=== PATIENT | female | born 1960 | race Caucasian/White ===

== ENCOUNTER 2023-04-30 18:16 | Emergency (ER) | payer MEDICARE, SELFPAY ==
[2023-04-30 18:39] VITALS: BP 135/87; PULSE 94; RESP 17; TEMP 36.5; O2SAT 96; BMI 30.9
--- NOTE | 2023-04-30 18:52 | XRR_ITS ---
PROCEDURE INFORMATION: Exam: XR Left Ankle Exam date and time: 04/30/2023 6:58 PM Age: 63 years old Clinical indication: Injury or trauma; Patient HX: Lt ankle pain/swelling post fall TECHNIQUE: Imaging protocol: Radiologic exam of the left ankle. Views: 3 or more views. COMPARISON: No relevant prior studies available. FINDINGS: Bones/joints: There is a minimally displaced fracture of the distal fibular diaphysis. Nondisplaced fracture seen in the medial malleolus. There is a nondisplaced fracture of the posterior malleolus. Ankle joint effusion. No dislocation. Soft tissues: There is soft tissue swelling about the ankle greatest laterally. XR/XR ankle LT min 3V* [id number] IMPRESSION: Trimalleolar fracture of the left ankle with overlying soft tissue swelling, as described.
--- NOTE | 2023-04-30 20:42 | W.ED.EXTPRO ---
HPI - Extremity Problem General: Chief complaint: Extremity Injury, Lower Stated complaint: Left ankle injuy Time Seen by Provider: 04/30/23 20:09 History of Present Illness: Patient is a 63-year-old female who presents to the emergency department for evaluation of a left ankle injury. Patient reports that earlier this evening she was going down the stairs when she accidentally missed a step and rolled her left ankle. Patient states that since the incident she has had increased left ankle pain and swelling. Patient states that she is having difficulty bearing weight on her left ankle secondary to the pain. Patient denies any pain at rest, however, the pain can reach a 10 out of 10 in severity with ambulation. She denies any numbness or tingling in the ipsilateral extremity. Admits to full range of motion of the left ankle, foot, and toes. Denies hitting her head or any other part of her body during the fall. Denies loss conscious, nausea, vomiting, visual disturbances, headache, lightheadedness, dizziness, or use of anticoagulation medication. No other complaints at this Associated symptoms: Deny chest pain, fever(s) or rash Review of Systems General: Reports: 10 or more systems reviewed and unremarkable except in HPI and below Const: Denies: fever(s) or chills Eyes: Denies: change in vision or blurry vision ENMT: Denies: throat pain, ear or mastoid pain, ear discharge, nasal discharge or nasal congestion Card: Denies: chest pain or palpitations Resp: Denies: dyspnea, productive cough, non-productive cough or wheezing GI: Denies: abdominal pain, nausea or vomiting Musc: Reports: joint pain and joint swelling Skin/Breast: Denies: rash Neuro: Denies: headache(s), numbness in extremities, dizziness or vertigo Physical Exam Const: COMMON NORMALS: no acute distress, patient oriented x3 and alert HENMT: COMMON NORMALS: normocephalic, atraumatic, TM's normal bilaterally, moist oral mucous membranes and oropharynx normal HEAD & SCALP: normocephalic and atraumatic TYMPANIC MEMBRANE: TM's normal bilaterally OTHER: No Hyman sign or raccoon sign noted. No other evidence of head trauma appreciated anywhere on examination. Bilateral tympanic membranes pearly jones without evidence of effusion or hemotympanums. Eye: COMMON NORMALS: Equal, round and reactive pupils present, EOMs intact bilaterally and conjunctivae normal CONJUNCTIVA: Yes conjunctivae normal PUPIL: Yes Equal, round and reactive pupils present Neck/C-Spine: COMMON NORMALS: full ROM and supple OTHER: No midline vertebral tenderness is noted to cervical spine. Chest: COMMONS NORMALS: normal inspection of the chest Resp: COMMON NORMALS: normal respiratory effort, No retractions and No use of accessory muscles Cardio: COMMON NORMALS: regular rate RATE: regular rate OTHER: 2+ dorsalis pedis pulse left foot. Back/Pelvis: COMMON NORMALS: thoracic and lumbar spine normal to inspection and no thoracic nor lumbar tenderness Extremity: OTHER: Mild swelling is noted to the left ankle. Tenderness to palpation to the lateral malleolus of the left ankle. Patient has full passive and active range of motion in the left ankle, foot, and toes. Moving all other bilateral upper and lower extremities without weakness or deficit. No bony abnormalities or protuberances noted. Neuro: COMMON NORMALS: patient oriented x3 SENSORIUM/ORIENTATION: Yes alert OTHER: Sensation intact to the entirety of the left lower extremity. Patient is alert and oriented x 4. No focal neurological deficits noted on examination. Course Vital Signs: Vital signs: Vital Signs Temperature 97.7 F 04/30/23 18:39 Pulse Rate 94 04/30/23 18:39 Respiratory Rate 17 04/30/23 18:39 Blood Pressure 135/87 04/30/23 18:39 Pulse Oximetry 96 04/30/23 18:39 Oxygen Delivery Me thod Room Air 04/30/23 18:39 MDM - Extremity (Nontraumatic) Medical Decision Making Patient is a 63-year-old female who presents to the emergency department for evaluation of a left ankle injury. On physical examination patient is nontoxic and in no acute distress. Vital signs remained stable throughout the ED course. Patient is neurovascular intact. Compartments are soft and there is no evidence of compartment syndrome. X-ray of the left ankle showed a trimalleolar fracture. I consulted Dr. Boggs with podiatry who recommended posterior short leg with side stirrups, nonweightbearing, and outpatient follow-up in his office. He did not believe the patient required admission or further evaluation at this time. Patient was splinted as instructed. Patient was neurovascular intact both before and after splint placement. A splint was provided in the emergency department. Remain in this and nonweightbearing until evaluated by the orthopedic surgeon. A referral was placed to Dr. Boggs's office, the lan specialist retail loss prevention officer. Number provided in discharge paperwork. Call tomorrow to schedule appointment for further management/evaluation. Ice can be placed over the splint 15 to 20 minutes 5-6 times a day. Tylenol and ibuprofen as needed for pain. Call your primary care provider tomorrow with an update of your symptoms. Return to the emergency department for any rapid or worsening symptoms to include but not limited to numbness, tingling, color changes in the toes of your left foot, difficulties with the splint, or as needed. Patient stated understanding of all discharge instructions was agreeable to the plan of care. Differential diagnosis includes but is not limited to fracture, contusion, sprain, dislocation, compartment syndrome Lab Data Radiology Impressions Ankle X-Ray 04/30/23 18:52 IMPRESSION: Trimalleolar fracture of the left ankle with overlying soft tissue swelling, as described. All radiology interpretation(s) finalized by discharge Discharge Plan Discharge Patient Disposition: Home Clinical Impression: Ankle fracture, left Condition: Stable Discharge Orders: Discharge ED (Routine); Ordered 04/30/23 Ordered By: Javier Asencio Referrals: Eric Boggs DPM [Physician] - Homer Sebastian DO [Primary Care Provider] - Patient Instructions: Ankle Fracture (DC) Activity Restrictions/Additional Instructions: As discussed in room a fracture was noted to your left ankle. A splint was provided in the emergency department. Remain in this and nonweightbearing until evaluated by the orthopedic surgeon. A referral was placed to Dr. Boggs's office, the lan specialist retail loss prevention officer. Number provided in discharge paperwork. Call tomorrow to schedule appointment for further management/evaluation. Ice can be placed over the splint 15 to 20 minutes 5-6 times a day. Tylenol and ibuprofen as needed for pain. Call your primary care provider tomorrow with an update of your symptoms. Return to the emergency department for any rapid or worsening symptoms to include but not limited to numbness, tingling, color changes in the toes of your left foot, difficulties with the splint, or as needed. Coding Level of Care Code ED Investment Banking Manager for Domenico Ugarte
--- NOTE | 2023-04-30 21:21 | PC.NURSE ---
pt skin was pink and normal for pt with 3 plus pulse on left foot. Placed a posterior short splint with a stirup splint. pt states 'No numbness or tingling' after splint was placed
--- NOTE | 2023-05-03 08:33 | DCPLANNER ---
Referral was sent to podiatry on 05/03/23 at 0835. Clinic to contact patient.
== END 2023-04-30 21:35 | disposition home or self-care (01) ==
PROVIDERS: Emergency Provider Physician Assistant; PCP Family Medicine
DX: S82.852A Displaced trimalleolar fracture of left lower leg, initial encounter for closed fracture (principal); X50.1XXA Overexertion from prolonged static or awkward postures, initial encounter
CPT/HCPCS: 29515; 73610; 99283

== ENCOUNTER → 2023-05-03 09:51 | Outpatient (BNVA) | payer MEDICARE, SELFPAY | PROVIDERS: PCP Family Medicine; Visit Provider Podiatrist Foot & Ankle Surgery | DX: S82.852A Displaced trimalleolar fracture of left lower leg, initial encounter for closed fracture (principal); W10.8XXA Fall (on) (from) other stairs and steps, initial encounter | CPT/HCPCS: 99204 ==

== ENCOUNTER 2023-05-06 12:31 | Day surgery (SDC) | payer MEDICARE, SELFPAY ==
[2023-05-06] VITALS (10 sets, daily range): BP systolic 121–145; BP diastolic 63–102; PULSE 62–85; RESP 16–18; TEMP 36.1–36.6; O2SAT 93–100; BMI 30.9
--- NOTE | 2023-05-06 | XR_ITS ---
WS: [id number] Left ankle, C-arm fluoroscopy views, 05/06/2023 Clinical Data: MICKIE PICS Comparison: Left ankle, 04/30/2023 Findings: Dr. Boggs inserted an orthopedic screw into the medial malleolus of the left ankle Impression: Insertion of orthopedic screw in the medial malleolus of the left ankle.
[2023-05-06] MEDS: sodium chloride 0.9% 1,000 ML 30 ML IV (13:10)
[2023-05-06] MEDS: gabapentin 300 mg Capsule PO (13:18)
[2023-05-06] MEDS: CELEcoxib 200 mg Capsule 400 MG PO (13:18)
--- NOTE | 2023-05-06 15:27 | ANES.PREANE2 ---
Pre-Anesthetic Assessment Height/Weight: Height 1.57 m Weight 76.657 kg Temp Pulse Resp BP Pulse Ox O2 Del Method 98 F 85 16 141/102 97 Room Air 05/06/23 13:02 05/06/23 13:02 05/06/23 13:02 05/06/23 13:02 05/06/23 13:02 05/06/23 13:02 Preop Diagnosis: Left trimalleolar fracture Operation Date: 05/06/23 14:10 Proposed Procedures p Open reduction internal fixation left trimalleolar fracture 45477, S82.852A(Left) - Eric Boggs DPM Familial anesthetic complications: none Was Beta Duc taken within 24 hours: N/A Was Clonidine taken within 24 hours: N/A Last intake: Intake Last Liquid Date 05/06/23 Last Liquid Time 07:00 Last Solid Date 05/05/23 Last Solid Time 17:00 Social No alcohol and No tobacco Exam alert, oriented x 3, clear to auscultation bilaterally and regular rate & rhythm Airway Submandibular: within normal limits Cervical ROM: within normal limits Mallampati: Class II Dentition: full Metabolic Hyperlipidemia and Thyroid Disease Neuropsych Depression Anesthetic Plan ASA status: 2 Anesthesia: General and Regional (specify below) (left pop blk) Medications/Allergies Home Medications Medication Instructions Recorded Confirmed Last Taken Type buspirone 5 mg tablet 5 mg PO DAILY 05/03/23 05/05/23 05/05/23 History escitalopram oxalate 20 mg tablet 20 mg PO DAILY 05/03/23 05/05/23 05/05/23 History levothyroxine 88 mcg tablet 88 mcg PO DAILY 05/03/23 05/06/23 05/06/23 History simvastatin 10 mg tablet 10 mg PO DAILY 05/03/23 05/05/23 05/05/23 History valacyclovir 1 gram tablet 1 mg PO DAILY 05/03/23 05/06/23 05/05/23 History Allergies Allergy/AdvReac Type Severity Reaction Status Date / Time No Known Allergies Allergy Verified 05/06/23 13:00 Current Medications Generic Name Dose Route Start Last Admin Trade Name Freq PRN Reason Stop Dose Admin Sodium Chloride 1,000 mls @ 30 mls/hr 05/06/23 12:45 05/06/23 13:10 Sodium Chloride 0.9% IV 05/07/23 12:44 30 mls/hr .Q24H LINDA Administration Data Anesthesia Cardiac Studies: No Data to Display
--- NOTE | 2023-05-06 15:39 | P.HPUD_ITS ---
Surgery/Procedure H&P Update DATE OF PROCEDURE: May 06, 2023 DATE H&P PERFORMED: 05/03/23 H&P UPDATE INFORMATION: I have reviewed H&P completed within last 30 days, I have examined patient prior to procedure, No changes to prior documentation and H&P is in [facility] EMR on date indicated PREOP DIAGNOSIS: Left trimalleolar fracture PLANNED PROCEDURE: Operation Date: 05/06/23 14:10 Proposed Procedures p Open reduction internal fixation left trimalleolar fracture 12678, S82.852A(Left) - Eric Boggs DPM
[2023-05-06] MEDS: ceFAZolin 2,000 MG in sodium chloride 0.9% (plus) 50 ML 100 MG IV (15:59)
--- NOTE | 2023-05-06 16:08 | P.OP_ITS ---
Operative Report Date of procedure: May 06, 2023 Pre-op diagnosis: Left trimalleolar fracture Post-op diagnosis: Left trimalleolar fracture Post-op findings: Congruent ankle mortise with excellent reduction and fixation of trimalleolar fracture. Procedure done: Open reduction internal fixation left trimalleolar fracture. CPT code 24641 Implants: [place] anatomic fibular plate, 3.5 millimeter screws at plate and at medial malleolus. 2-0 Vicryl, 3-0 Vicryl, skin yayo Surgeon: Eric Boggs DPM Excellence Consultant: See intraoperative documentation Estimated blood loss: 5 See intraoperative documentation IV fluids: 0 Urine output: 0 Complications: None Brief History: 63 YOF patient presenting to the clinic for a trimalleolar fracture to the left DOI: 04/30/23. Patient states that she missed a step and fell and foot went behind her. Patient is NWB in a spint to the left utilizing a wheel chair. Patient denies any history of heart issues. Remain strict nonweightbearing left lower extremity and elevate left foot while resting. Immobilized with splint. Utilizing wheelchair. Recommended ORIF of left trimalleolar fracture due to unstable tear of her fracture. I reviewed at length with the patient, the risks, potential complications, benefits, alternatives, expectations, and typical outcomes associated with the surgery. The risks and potential complications were explained in detail, including but not limited to infection, wound dehiscence or soft tissue complications, bleeding and hematoma, chronic edema, neuritis or nerve damage producing numbness or chronic pain, CRPS, failure to relieve pain or worsening pain, thick / painful / unsightly scar, limited motion / stiffness, malposition, delayed union, malunion, or nonunion, fracture, reaction to implants, anesthetic complications, venous thromboembolism, and deformity recurrence. I discussed the notion of no regrets with the patient as it pertains to complications and outcomes. The patient seemed to understand the nature of the proposed care and required convalescence. They asked appropriate questions, answered to their satisfaction. They are aware no guarantees can be made as to a satisfactory outcome and they understand there may be other possible unforeseen complications or outcomes not listed here that will be treated accordingly if they arise. There were no written or implied guarantees given to the patient. They gave informed consent to proceed. Procedure: Under mild sedation the patient was brought to the operating room and placed on the operating table in supine position. A timeout was performed. Anesthesia was then administered by the anesthesia service. Of note popliteal block to the left lower extremity was performed preoperatively per anesthesia. Well-padded pneumatic tourniquet was applied to the left high calf. The left lower extremity was scrubbed, prepped and draped utilizing normal aseptic technique. Left lower extremity was then exanguinated with an Esmarch bandage and tourniquet inflated to 250 mmHg. Attention was directed to the lateral aspect of the left ankle where lateral malleolus and distal fibula is palpated. Directly over the lateral distal fibula and incision was made through skin with #15 blade with dissection carried down to the layer of periosteum utilizing sharp and blunt technique. Care was taken to retract and preserve neurovascular and tendinous structures. All bleeders were ligated and cauterized as necessary. Fracture was distracted and curettage of hematoma followed by saline flush, this was then reduced and fixated utilizing a [place] anatomic fibular plate with 3.5 mm locking screws both distally and proximally. Excellent bony apposition compression noted. Fibulas pulled out to length and the rotated with congruent ankle mortise appreciated on the oblique, AP and lateral views. Screws did not violate the ankle mortise. The incision was irrigated with saline solution and closed in a layered fashion with periosteum reapproximated with 2-0 Vicryl, subcutaneous tissue reapproximated with 3-0 Vicryl skin with skin yayo. Attention was directed to the medial malleolus where percutaneous 2 screw fixation was performed with 3.5 mm cannulated screws with excellent bony apposition and compression noted this was perpendicular to the fracture site and screws did not violate the ankle mortise or medial gutter. Percutaneous sites were irrigated skin solution and closed with 4-0 nylon. Incisions were dressed with Adaptic, sterile 4 x 4's, Kerlix and Sonny wrap followed by application of a cam boot to the left lower extremity. Tourniquet was deflated and a prompt hyperemic response was noted to the distal digits of the left foot. Patient tolerated the procedure and anesthesia well was transferred to the PACU with vital signs stable and vascular status intact. Following a period of postoperative monitoring she will be discharged home was given at home care instructions, scheduled follow-up and my cell phone number to contact with any postoperative questions or concerns.
--- NOTE | 2023-05-06 16:26 | ANES.PROC ---
Anesthesia Procedures Procedure/Date: 05/06/23 Nerve Block ^: Nerve Block 1: Main Anesthesia: general anesthesia Time Out Performed: Yes Consent: requested by attending/covering physician, from patient, risks and benefits reviewed and patient agrees to proceed Nerve block location: popliteal (left) Anesthesia monitors applied: pulse oximetry, EKG, BP cuff and oxygen Nerve block position: supine Anesthetic Used: ropivicaine 0.5% Amount of anesthesia used (mL): 30 Ultrasound used to: recognize landmarks Nerve Stimulator Used?: Yes Interscalene/Femoral BLK: 4 stimuplex 21 g needle used for position and inplane approach Injection: neg aspiration of heme Patient Tolerated Procedure: well Complications: none
--- NOTE | 2023-05-06 17:12 | W.PM.BPON ---
Date of Procedure: 05/06/23 Surgeon: Eric Boggs DPM Spray Painting Machine Operator(s): Sierra Ortiz Procedure(s) performed: Open reduction internal fixation left trimalleolar fracture none Findings of the procedure(s): None Estimated blood loss: 5 mL Specimen(s) removed: None Post-operative diagnosis: Left trimalleolar fracture, no complications during surgery.
--- NOTE | 2023-05-06 18:55 | ANE.PACU2 ---
Inpatient post-anesthesia follow up: Airway intact: Yes Vital signs: Temperature 97 F Pulse Rate 64 Respiratory Rate 18 Blood Pressure 129/63 Pulse Oximetry 96 Oxygen Delivery Me thod Room Air Oxygen Flow Rate 6 Fraction of Inspir ed Oxygen Hydration adequate: Yes Nausea and vomiting: No Pain level: 1 Mental status: Baseline
== END 2023-05-06 18:20 | disposition home or self-care (01) ==
PROVIDERS: PCP Family Medicine; Visit Provider Podiatrist Foot & Ankle Surgery
PROC: (CPT 27822; principal; 2023-05-06 14:00)
DX: S82.852A Displaced trimalleolar fracture of left lower leg, initial encounter for closed fracture (principal); W10.9XXA Fall (on) (from) unspecified stairs and steps, initial encounter; E78.5 Hyperlipidemia, unspecified; F32.A Depression, unspecified
CPT/HCPCS: 27822; 73600; 76000; C1713; J0690; J2704; J2795; J3010; J7030

== ENCOUNTER → 2023-05-20 13:09 | Outpatient (BNVA) | payer MEDICARE, SELFPAY | PROVIDERS: PCP Family Medicine; Visit Provider Podiatrist Foot & Ankle Surgery | DX: S82.852D Displaced trimalleolar fracture of left lower leg, subsequent encounter for closed fracture with routine healing (principal); X58.XXXD Exposure to other specified factors, subsequent encounter | CPT/HCPCS: 73610; 99024 ==

== ENCOUNTER → 2023-06-03 13:06 | Outpatient (BNVA) | payer MEDICARE, SELFPAY | PROVIDERS: PCP Family Medicine; Visit Provider Podiatrist Foot & Ankle Surgery | DX: Z98.890 Other specified postprocedural states (principal); S82.852D Displaced trimalleolar fracture of left lower leg, subsequent encounter for closed fracture with routine healing; X58.XXXD Exposure to other specified factors, subsequent encounter; Z46.89 Encounter for fitting and adjustment of other specified devices; Z47.89 Encounter for other orthopedic aftercare | CPT/HCPCS: 73610; 99024; L4361 ==

== ENCOUNTER 2023-06-03 15:52 | Outpatient (CLI) | payer MEDICARE, SELFPAY | END 2023-06-03 15:53 | disposition home or self-care (01) | LOC: SPT 15:53 | PROVIDERS: PCP Family Medicine; Visit Provider Podiatrist Foot & Ankle Surgery | DX: Z46.89 Encounter for fitting and adjustment of other specified devices (principal); Z47.89 Encounter for other orthopedic aftercare; S82.852D Displaced trimalleolar fracture of left lower leg, subsequent encounter for closed fracture with routine healing; X58.XXXD Exposure to other specified factors, subsequent encounter | CPT/HCPCS: 99024; L4361 ==

== ENCOUNTER → 2023-06-17 12:44 | Outpatient (BNVA) | payer MEDICARE, SELFPAY | PROVIDERS: PCP Family Medicine; Visit Provider Podiatrist Foot & Ankle Surgery | DX: S82.852D Displaced trimalleolar fracture of left lower leg, subsequent encounter for closed fracture with routine healing; X58.XXXD Exposure to other specified factors, subsequent encounter | CPT/HCPCS: 73610; 99024 ==

== ENCOUNTER → 2023-07-27 14:16 | Outpatient (BNVA) | payer MEDICARE, SELFPAY | PROVIDERS: PCP Family Medicine; Visit Provider Podiatrist Foot & Ankle Surgery | DX: S82.852D Displaced trimalleolar fracture of left lower leg, subsequent encounter for closed fracture with routine healing; X58.XXXD Exposure to other specified factors, subsequent encounter | CPT/HCPCS: 73610; 99024; 99213 ==